=== PATIENT | female | born 1990 | race Caucasian/White ===

== ENCOUNTER 2018-06-03 17:09 | Emergency (ER) | payer OTHER, SELFPAY ==
--- NOTE | 2018-06-03 | DI.RAD.S_ITS ---
PROCEDURE: XR LUMBAR SPINE 2-3V INDICATIONS: BACK PAIN TECHNIQUE: 3 views of the lumbar spine were acquired. COMPARISON: None. FINDINGS: Bones: 5 [id number] vertebrae are present. There is normal bony alignment. No vertebral body compression fractures. No suspicious bony lesions. Soft tissues: Overlying bowel gas pattern is normal. No suspicious soft tissue calcifications. IMPRESSION: Normal for age. Source of current symptoms is not seen. Dictated by: Brendon Lucia M.D. on 06/03/2018 at 18:30 Approved by: Brendon Lucia M.D. on 06/03/2018 at 18:31
[2018-06-03 17:13] VITALS: BP 108/61; PULSE 61; RESP 18; TEMP 37; O2SAT 99; BMI 28.5
--- NOTE | 2018-06-03 18:08 | DI.RAD.S_ITS ---
PROCEDURE: XR THORACIC SPINE 3V INDICATIONS: back pain TECHNIQUE: 3 views of the thoracic spine were acquired. COMPARISON: None. FINDINGS: Bones: No fractures or dislocations. No suspicious bony lesions. 12 pairs of ribs are noted, and appear intact where visualized. Soft tissues: No paravertebral stripe thickening. IMPRESSION: No trauma found. Dictated by: Brendon Lucia M.D. on 06/03/2018 at 18:31 Approved by: Brendon Lucia M.D. on 06/03/2018 at 18:32
--- NOTE | 2018-06-03 18:38 | ED.BACK ---
HPI - Back Pain/Injury <JOAQUINA Jin - Last Filed: 06/03/18 19:06> General Chief Complaint: Back Pain/Injury Stated Complaint: back pain x 3 days Time Seen by Provider: 06/03/18 18:01 Source: patient Mode of arrival: ambulatory Limitations: no limitations History of Present Illness HPI Narrative: Patient presents with chief complaint of back pain. She states her last week while moving a couch. Took several days rest, ice, heat, ibuprofen and Tylenol. Denies any urinary symptoms. States she was feeling better and then immediately felt worse today when she bent over to pick something up at work. She denies any fevers, nausea, vomiting, diarrhea. She denies any numbness, tingling, bowel incontinence, bladder and continence or saddle anesthesia. She states that She has had back pain before several times but denies having had any imaging for her back. She denies any shortness of breath or chest pain. Related Data Previous Rx's Medication Instructions Recorded cyclobenzaprine 10 mg PO TID PRN #30 tab 06/03/18 naproxen 500 mg PO BID PRN #20 tab 06/03/18 Allergies Allergy/AdvReac Type Severity Reaction Status Date / Time clindamycin Allergy Swelling Verified 06/03/18 17:19 of Lip/Tongue/Throat Review of Systems <JOAQUINA Jin - Last Filed: 06/03/18 19:06> Review of Systems GENERAL: Denies chills, fatigue, malaise, fever, sweats. HEENT: Denies sinus pain, ear pain, sore throat, difficulty swallowing, dizziness. RESPIRATORY: Denies dyspnea, cough, wheezing, hemoptysis, sputum. CARDIOVASCULAR: Denies chest pain, palpitations, orthopnea, edema, GASTROINTESTINAL: Denies nausea, vomiting, abdominal pain, diarrhea, constipation, melena. : Denies dysuria, frequency, incontinence, hematuria, urinary retention. MUSCULOSKELETAL: see HPI SKIN: Denies rash, skin lesions, or other NEUROLOGIC: Denies weakness, headache, numbness, change in speech, confusion, seizures, incoordination. PSYCHIATRIC: No concerning psychosocial issues. 12 point review of systems is negative except for those stated above Exam <JOAQUINA Jin - Last Filed: 10/08/18 19:06> Narrative Exam Narrative: GENERAL: This is a well-nourished, well-developed patient, sitting straight up on bed. HEAD: Atraumatic. Normocephalic. No temporal or scalp tenderness. EYES: Pupils equal round and reactive. Extraocular motions intact. No scleral icterus. No injection or drainage. ENT: Nose without bleeding, purulent drainage or septal hematoma. Throat without erythema, tonsillar hypertrophy or exudate. Uvula midline. Airway patent. NECK: Trachea midline. No JVD or lymphadenopathy. Supple, nontender, no meningeal signs. CARDIOVASCULAR: Regular rate and rhythm without murmurs, gallops, or rubs. RESPIRATORY: Clear to auscultation. Breath sounds equal bilaterally. No wheezes, rales, or rhonchi. GASTROINTESTINAL: Abdomen soft, non-tender, nondistended. No hepato-splenomegaly, or palpable masses. No guarding. EXTREMITIES: No clubbing, cyanosis, or edema. No joint tenderness, effusion, or edema noted. BACK: C-spine and spina are nontender without deformity or crepitance. No palpable step-offs or deformities. Patient has pain to bilateral paraspinal muscle palpation in her T-spine region. No CVA tenderness bilaterally. NEURO: AOx3. Using bilateral extremities equally upper and lower. Strength equal bilateral extremities upper and lower. Radial reflexes intact bilaterally. Patellar reflexes intact bilaterally. Stable gait. No slurred speech. SKIN: No rash or erythema. No rash erythema or ecchymosis noted lower back. Initial Vital Signs Initial Vital Signs: Vital Signs Temperature 98.6 F 06/03/18 17:13 Pulse Rate 61 06/03/18 17:13 Respiratory Rate 18 06/03/18 17:13 Blood Pressure 108/61 06/03/18 17:13 Pulse Oximetry 99 06/03/18 17:13 <Winifred Malcolm DO - Last Filed: 06/04/18 08:27> Initial Vital Signs Initial Vital Signs: Vital Signs Temperature 98.6 F 06/03/18 17:13 Pulse Rate 61 06/03/18 17:13 Respiratory Rate 18 06/03/18 17:13 Blood Pressure 108/61 06/03/18 17:13 Pulse Oximetry 99 06/03/18 17:13 Course <TONY Jin - Last Filed: 06/03/18 19:06> Course Narrative: I discussed at length with the patient pros and cons of obtaining x-rays. Given that she has had several episodes of this pain, she requested x-rays. Orders Ordered: ED Orders 06/03/18 18:08 XR thoracic spine 3V Stat Vital Signs - 8 hr 06/03/18 17:13 Temperature 98.6 F Pulse Rate 61 Respiratory Rate 18 Blood Pressure 108/61 Pulse Oximetry 99 <Winifred Malcolm DO - Last Filed: 06/04/18 08:27> Orders Ordered: ED Orders 06/03/18 18:08 XR thoracic spine 3V Stat Vital Signs - 8 hr 06/03/18 17:13 Temperature 98.6 F Pulse Rate 61 Respiratory Rate 18 Blood Pressure 108/61 Pulse Oximetry 99 MDM - Back Pain/Injury <TONY Jin - Last Filed: 06/03/18 19:06> Lab Data Point of Care Testing Test Results Negative Imaging Data l spine xray : Radiologist's impression: [address] [address] XRay Report Signed Patient: Monica Skinner JMR#: [id number] : 1990Acct:[id number] Age/Sex: 28 / FDate of Service: 06/03/18 Loc: ED Accession Number: [id number] Procedure: XR lumbar spine 2-3V Ordering Provider: Jen Romero PROCEDURE: XR LUMBAR SPINE 2-3V INDICATIONS: BACK PAIN TECHNIQUE: 3 views of the lumbar spine were acquired. COMPARISON: None. FINDINGS: Bones: 5 nrq-kan-[id number] vertebrae are present. There is normal bony alignment. No vertebral body compression fractures. No suspicious bony lesions. Soft tissues: Overlying bowel gas pattern is normal. No suspicious soft tissue calcifications. IMPRESSION: Normal for age. Source of current symptoms is not seen. Dictated by: Brendon Lucia M.D. on 06/03/2018 at 18:30 Approved by: Brendon Lucia M.D. on 06/03/2018 at 18:31 t spine xray : Radiologist's impression: [address] [address] XRay Report Signed Patient: JosephEdison torrezyla JMR#: [id number] : 1990Acct:[id number] Age/Sex: 28 / FDate of Service: 06/03/18 Loc: ED Accession Number: [id number] Procedure: XR thoracic spine 3V Ordering Provider: Jen Romero PROCEDURE: XR THORACIC SPINE 3V INDICATIONS: back pain TECHNIQUE: 3 views of the thoracic spine were acquired. COMPARISON: None. FINDINGS: Bones: No fractures or dislocations. No suspicious bony lesions. 12 pairs of ribs are noted, and appear intact where visualized. Soft tissues: No paravertebral stripe thickening. IMPRESSION: No trauma found. Dictated by: Brendon Lucia M.D. on 06/03/2018 at 18:31 Approved by: Brendon Lucia M.D. on 06/03/2018 at 18:32 [facility] Narrative Medical decision making narrative: Patient presented chief complaint back pain. Given her presentation and pain on palpation, this is likely related to muscle spasm. We did obtain x-rays to help rule out any other etiology given the multiple episodes of this pain. Her x-rays came back within normal limits. Given that she took Aleve just prior to arrival in the emergency department, I did not give her any Toradol. Given that she drove herself here I was not comfortable treating her with Flexeril prior to driving. This I gave her prescription of Flexeril as well as a prescription for naproxen with an understanding of to not take it with any other NSAIDs. We discussed at length return precautions including numbness, weakness, incontinence of bowel or bladder saddle anesthesia. She stated understanding and has no questions or concerns upon discharge. <Winifred Malcolm, - Last Filed: 06/04/18 08:27> Lab Data Point of Care Testing Test Results Negative Discharge Plan Departure Patient Disposition: Home Clinical Impression: Back pain, Muscle spasm Discharge Date/Time: 06/03/18 19:22 Interventions: ED Discharge Assessment Last Done: 06/03/18 19:21 Instructions: DI for Back Spasm, DI for Thoracic Back Pain Activity Restrictions/Additional Instructions: Your x-rays today look okay. I have given you a prescription of naproxen for pain. You can take this twice a day but do not take it with any other NSAIDs such as ibuprofen or Aleve. I have given you a prescription for Flexeril that he can take up to 3 times a day. This is a muscle relaxer and can be sedating. He can also use ice or heat whichever feels best. Please follow-up with primary care provider if needed. Monitor for any weakness, numbness, incontinence of bowel or bladder, or saddle anesthesia. Please be evaluated if any of these occur. Prescriptions: New cyclobenzaprine 10 mg tablet 10 mg PO TID PRN (Reason: muscle spasm) Qty: 30 RF: 0 naproxen 500 mg tablet 500 mg PO BID PRN (Reason: pain) Qty: 20 RF: 0 Referrals: [facility] [Provider Group] Stand Alone Forms: Work/School Restrictions <Winifred Malcolm DO - Last Filed: 06/04/18 08:27> Cosign ED Attending Romeoature Attestation: I was immediately available in the department for consultation. Documentation has been reviewed. I agree with assessment and plan.
--- NOTE | 2018-06-03 18:45 | ED_ITS ---
HPI - Back Pain/Injury <JOAQUINA Jin - Last Filed: 06/03/18 19:06> General Chief Complaint: Back Pain/Injury Stated Complaint: back pain x 3 days Time Seen by Provider: 06/03/18 18:01 Source: patient Mode of arrival: ambulatory Limitations: no limitations History of Present Illness HPI Narrative: Patient presents with chief complaint of back pain. She states her last week while moving a couch. Took several days rest, ice, heat, ibuprofen and Tylenol. Denies any urinary symptoms. States she was feeling better and then immediately felt worse today when she bent over to pick something up at work. She denies any fevers, nausea, vomiting, diarrhea. She denies any numbness, tingling, bowel incontinence, bladder and continence or saddle anesthesia. She states that She has had back pain before several times but denies having had any imaging for her back. She denies any shortness of breath or chest pain. Related Data Previous Rx's Medication Instructions Recorded cyclobenzaprine 10 mg PO TID PRN #30 tab 06/03/18 naproxen 500 mg PO BID PRN #20 tab 06/03/18 Allergies Allergy/AdvReac Type Severity Reaction Status Date / Time clindamycin Allergy Swelling Verified 06/03/18 17:19 of Lip/Tongue/Throat Review of Systems <JOAQUINA Jin - Last Filed: 06/03/18 19:06> Review of Systems GENERAL: Denies chills, fatigue, malaise, fever, sweats. HEENT: Denies sinus pain, ear pain, sore throat, difficulty swallowing, dizziness. RESPIRATORY: Denies dyspnea, cough, wheezing, hemoptysis, sputum. CARDIOVASCULAR: Denies chest pain, palpitations, orthopnea, edema, GASTROINTESTINAL: Denies nausea, vomiting, abdominal pain, diarrhea, constipation, melena. : Denies dysuria, frequency, incontinence, hematuria, urinary retention. MUSCULOSKELETAL: see HPI SKIN: Denies rash, skin lesions, or other NEUROLOGIC: Denies weakness, headache, numbness, change in speech, confusion, seizures, incoordination. PSYCHIATRIC: No concerning psychosocial issues. 12 point review of systems is negative except for those stated above Exam <JOAQUINA Jin - Last Filed: 10/08/18 19:06> Narrative Exam Narrative: GENERAL: This is a well-nourished, well-developed patient, sitting straight up on bed. HEAD: Atraumatic. Normocephalic. No temporal or scalp tenderness. EYES: Pupils equal round and reactive. Extraocular motions intact. No scleral icterus. No injection or drainage. ENT: Nose without bleeding, purulent drainage or septal hematoma. Throat without erythema, tonsillar hypertrophy or exudate. Uvula midline. Airway patent. NECK: Trachea midline. No JVD or lymphadenopathy. Supple, nontender, no meningeal signs. CARDIOVASCULAR: Regular rate and rhythm without murmurs, gallops, or rubs. RESPIRATORY: Clear to auscultation. Breath sounds equal bilaterally. No wheezes , rales, or rhonchi. GASTROINTESTINAL: Abdomen soft, non-tender, nondistended. No hepato-splenomegaly , or palpable masses. No guarding. EXTREMITIES: No clubbing, cyanosis, or edema. No joint tenderness, effusion, or edema noted. BACK: C-spine and spina are nontender without deformity or crepitance. No palpable step-offs or deformities. Patient has pain to bilateral paraspinal muscle palpation in her T-spine region. No CVA tenderness bilaterally. NEURO: AOx3. Using bilateral extremities equally upper and lower. Strength equal bilateral extremities upper and lower. Radial reflexes intact bilaterally. Patellar reflexes intact bilaterally. Stable gait. No slurred speech. SKIN: No rash or erythema. No rash erythema or ecchymosis noted lower back. Initial Vital Signs Initial Vital Signs: Vital Signs Temperature 98.6 F 06/03/18 17:13 Pulse Rate 61 06/03/18 17:13 Respiratory Rate 18 06/03/18 17:13 Blood Pressure 108/61 06/03/18 17:13 Pulse Oximetry 99 06/03/18 17:13 <Winifred Malcolm DO - Last Filed: 06/04/18 08:27> Initial Vital Signs Initial Vital Signs: Vital Signs Temperature 98.6 F 06/03/18 17:13 Pulse Rate 61 06/03/18 17:13 Respiratory Rate 18 06/03/18 17:13 Blood Pressure 108/61 06/03/18 17:13 Pulse Oximetry 99 06/03/18 17:13 Course <TONY Jin - Last Filed: 06/03/18 19:06> Course Narrative: I discussed at length with the patient pros and cons of obtaining x-rays. Given that she has had several episodes of this pain, she requested x-rays. Orders Ordered: ED Orders 06/03/18 18:08 XR thoracic spine 3V Stat Vital Signs - 8 hr 06/03/18 17:13 Temperature 98.6 F Pulse Rate 61 Respiratory Rate 18 Blood Pressure 108/61 Pulse Oximetry 99 <Winifred Malcolm DO - Last Filed: 06/04/18 08:27> Orders Ordered: ED Orders 06/03/18 18:08 XR thoracic spine 3V Stat Vital Signs - 8 hr 06/03/18 17:13 Temperature 98.6 F Pulse Rate 61 Respiratory Rate 18 Blood Pressure 108/61 Pulse Oximetry 99 MDM - Back Pain/Injury <TONY Jin - Last Filed: 06/03/18 19:06> Lab Data Point of Care Testing Test Results Negative Imaging Data l spine xray : Radiologist's impression: [address] [address] XRay Report Signed Patient: Monica Skinner JMR#: [id number] : 1990Acct:[id number] Age/Sex: 28 / FDate of Service: 06/03/18 Loc: ED Accession Number: [id number] Procedure: XR lumbar spine 2-3V Ordering Provider: Jen Romero PROCEDURE: XR LUMBAR SPINE 2-3V INDICATIONS: BACK PAIN TECHNIQUE: 3 views of the lumbar spine were acquired. COMPARISON: None. FINDINGS: Bones: 5 [id number]-ubm-dhenobq vertebrae are present. There is normal bony alignment. No vertebral body compression fractures. No suspicious bony lesions. Soft tissues: Overlying bowel gas pattern is normal. No suspicious soft tissue calcifications. IMPRESSION: Normal for age. Source of current symptoms is not seen. Dictated by: Brendon Lucia M.D. on 06/03/2018 at 18:30 Approved by: Brendon Lucia M.D. on 06/03/2018 at 18:31 t spine xray : Radiologist's impression: [address] [address] XRay Report Signed Patient: JosephEdison torrezyla JMR#: [id number] : 1990Acct:[id number] Age/Sex: 28 / FDate of Service: 06/03/18 Loc: ED Accession Number: [id number] Procedure: XR thoracic spine 3V Ordering Provider: Jen Romero PROCEDURE: XR THORACIC SPINE 3V INDICATIONS: back pain TECHNIQUE: 3 views of the thoracic spine were acquired. COMPARISON: None. FINDINGS: Bones: No fractures or dislocations. No suspicious bony lesions. 12 pairs of ribs are noted, and appear intact where visualized. Soft tissues: No paravertebral stripe thickening. IMPRESSION: No trauma found. Dictated by: Brendon Lucia M.D. on 06/03/2018 at 18:31 Approved by: Brendon Lucia M.D. on 06/03/2018 at 18:32 [facility] Narrative Medical decision making narrative: Patient presented chief complaint back pain. Given her presentation and pain on palpation, this is likely related to muscle spasm. We did obtain x-rays to help rule out any other etiology given the multiple episodes of this pain. Her x-rays came back within normal limits. Given that she took Aleve just prior to arrival in the emergency department, I did not give her any Toradol. Given that she drove herself here I was not comfortable treating her with Flexeril prior to driving. This I gave her prescription of Flexeril as well as a prescription for naproxen with an understanding of to not take it with any other NSAIDs. We discussed at length return precautions including numbness, weakness, incontinence of bowel or bladder saddle anesthesia. She stated understanding and has no questions or concerns upon discharge. <Winifred Malcolm, - Last Filed: 06/04/18 08:27> Lab Data Point of Care Testing Test Results Negative Discharge Plan Departure Patient Disposition: Home Clinical Impression: Back pain, Muscle spasm Discharge Date/Time: 06/03/18 19:22 Interventions: ED Discharge Assessment Last Done: 06/03/18 19:21 Instructions: DI for Back Spasm, DI for Thoracic Back Pain Activity Restrictions/Additional Instructions: Your x-rays today look okay. I have given you a prescription of naproxen for pain. You can take this twice a day but do not take it with any other NSAIDs such as ibuprofen or Aleve. I have given you a prescription for Flexeril that he can take up to 3 times a day. This is a muscle relaxer and can be sedating. He can also use ice or heat whichever feels best. Please follow-up with primary care provider if needed. Monitor for any weakness, numbness, incontinence of bowel or bladder, or saddle anesthesia. Please be evaluated if any of these occur. Prescriptions: New cyclobenzaprine 10 mg tablet 10 mg PO TID PRN (Reason: muscle spasm) Qty: 30 RF: 0 naproxen 500 mg tablet 500 mg PO BID PRN (Reason: pain) Qty: 20 RF: 0 Referrals: [email or web address] [Provider Group] Stand Alone Forms: Work/School Restrictions <Winifred Malcolm DO - Last Filed: 06/04/18 08:27> Cosign ED Attending Romeoature Attestation: I was immediately available in the department for consultation. Documentation has been reviewed. I agree with assessment and plan.
--- NOTE | 2018-06-06 17:33 | PC.NURSE ---
follow up call, n/a
== END 2018-06-03 19:22 | disposition home or self-care (01) ==
PROVIDERS: Emergency Provider Nurse Practitioner Family
DX: M54.9 Dorsalgia, unspecified (principal); X50.0XXA Overexertion from strenuous movement or load, initial encounter
CPT/HCPCS: 72072; 72100; 81025; 99283; 99284

== ENCOUNTER 2019-02-18 06:30 | Day surgery (SDC) | payer OTHER, SELFPAY ==
[2019-02-05 15:10] VITALS: BMI 33.3
[2019-02-18] VITALS (13 sets, daily range): BP systolic 94–130; BP diastolic 55–69; PULSE 61–99; RESP 10–24; TEMP 36.2–36.7; O2SAT 94–100; BMI 33.3
[2019-02-18] MEDS: LACTATED RINGERS 1,000 ML 42 ML IV ×2 (07:14→08:46)
[2019-02-18] MEDS: MIDAZOLAM 2 MG/2 ML VIAL IV (07:36)
--- NOTE | 2019-02-18 07:41 | PM.PREOP ---
Pre-operative Note Interval Note History & Physical reviewed/Exam performed by Physician: Yes Changes to H&P: No
--- NOTE | 2019-02-18 07:44 | P.OP_ITS ---
Operative Date/Time/Diagnoses Date of procedure: 02/18/19 Time of procedure: 07:41 Pre-op diagnosis: Right hallux abductovalgus with bunion and pain Post-op diagnosis: same Procedure & Clinicians Procedure: Right bunionectomy with first metatarsocuneiform fusion Same procedure as scheduled: Yes Indications: Pain of the back, hip, and flexible pronating foot with bunion deformity. Conservative measures failed to alleviate pain and she wished to have surgical intervention at this time. Surgeon: Sarai Belle Click Yes if Unassisted: Yes Anesthesia Type: General Operative Notes Closure Type: primary Specimen(s): none sent Prosthetic devices, grafts, tissues, transplants, or devices: [place] Lap[place]us plate, 4.0 cannulated screw, 3.5 locking screws x3, 4.2 non-locking screw Vicryl 3-0, 4-0, Nylon 3-0 Estimated Blood Loss (mL): 20 Blood products transfused: none Tourniquet time (min): 89 Procedure in detail: The patient was brought to the operating room and placed on the operating table in the supine position. The tourniquet was placed about the right thigh. Well padded and appropriately aligned. After induction of general anesthesia the foot and ankle were prepped and draped in the usual aseptic manner. The tourniquet was inflated. Incision was made over the right 1st metatarsal cuneiform joint extending to the 1st metatarsophalangeal joint. The incision was deepened through subcutaneous tissues being careful to identify and retract all vital neurovascular structures. All bleeders were cauterized and ligated as necessary. A capsulotomy was performed to the 1st MTPJ exposing the enlarged medial eminence. The saw was used to resect the medial eminence and a little more prominent area of cartilage on the dorsal lateral 1st metatarsal head. This was smoothed. Attention was then directed to the 1st metatarsocuneiform joint which was entered. The joint was taken down and an osteotome was used to remove the cartilage off of either surface and then placing the foot in its corrected position, a saw was used to freshen the cuts on either side while resecting a little bone in an angled fashion from the distal leading edge of the medial cuneiform. This allowed for closure of the intermetatarsal angle. A drill was used to fenestrate either side of the former joint and fish scaling was also used. The area was irrigated with copious amounts normal sterile saline. With the aid of C-arm the guidewire was placed for temporary fixation through the 1st metatarsocuneiform joint. I loaded the foot and found appropriate alignment upon loading. Next the plate was trialed and using the guide the lag screw was placed from distal to proximal. The fusion site showed good compression and closure. The plate was then attached with the corresponding screws in the normal AO technique. This was reviewed on C-arm and noted to be strong and in appropriate alignment. Once this was loaded it would appear that there did not need to be a distal metatarsal osteotomy or phalangeal osteotomy and instead capsule balancing techniques with the soft tissue were appropriate. Once again after irrigation the medial 1st MTP capsule was resected and closed down and alignment with Vicryl. The tourniquet was deflated and a prompt hyperemic response was seen in the foot. Deep and subcutaneous closure was closed performed with Vicryl and nylon to the skin. The foot was dressed with a lightly compressive sterile dressing and splint in alignment. She was then placed in a postoperative shoe and transferred to PACU with vital signs stable. Complications: none Condition: stable Disposition: PACU Plan for aftercare: Following a period of postoperative monitoring the patient be discharged home on written and oral postoperative instructions including keeping the dressing dry and intact, no weight or walking to the foot, icing and elevating the foot when seated at home. DVT prevention techniques have been reviewed. Suture removal usually in the first couple weeks, x-rays at week 3-4. Possible start of WB around weekd 4, but will evaluate first prior to this allowance.
[2019-02-18] MEDS: CEFAZOLIN 2 GM/100 ML FROZ.PIGGY IV (07:46)
--- NOTE | 2019-02-18 07:47 | SUR.PREOP ---
Preoperative admit: Post IV insertion, patient felt light headed and dizzy. Head of bed flatttened. VSS. O2/NC 2 liters with sat 99%. Patient awake and responding appropriately to verbal commands. Patient stated Sorry, I am nervous. Reassured patient. Dr. Hayes at bedside at time of Vasovagal symptoms. Medicated with Versed per verbal order.
--- NOTE | 2019-02-18 08:21 | SUR.OPER ---
Supine on padded OR bed, head on pillow, arms secured on padded arm boards at <90 degrees abduction, legs uncrossed, safety belt at thigh, tape over blanket over lower left leg, right leg draped free with gell bump under right buttockl.
[2019-02-18] MEDS: BUPIVACAINE 0.5% (PF) VIAL 30 ML INJ (08:48)
[2019-02-18] MEDS: fentaNYL 100 MCG/2 ML INJ 50 MCG IV (10:24)
[2019-02-18] MEDS: HYDROCODONE/ACET 5/325 TABLET 1 TAB PO (10:48)
--- NOTE | 2019-02-18 11:02 | SUR.PHASEI ---
post op PACU note: VSS, o2 sat 93-97% RA, dressing CDI, rt foot; medicated w/ oral pain med for pain level 2/10; tolerated PO no Nausea. Transfered to OPD verbal hand off report given to Leni David
== END 2019-02-18 12:00 ==
LOC: OR 06:32
PROVIDERS: Visit Provider Podiatrist
PROC: 0QBN0ZZ Excision of Right Metatarsal, Open Approach (ICD-10-PCS; CPT 28292; principal; 2019-02-18 07:45)
DX: M20.11 Hallux valgus (acquired), right foot (principal); M21.41 Flat foot [pes planus] (acquired), right foot; R26.2 Difficulty in walking, not elsewhere classified; M79.671 Pain in right foot; F41.9 Anxiety disorder, unspecified
CPT/HCPCS: 28297; J0690; J1100; J2250; J2405; J2704; J3010

== ENCOUNTER 2019-07-11 06:12 | Day surgery (SDC) | payer OTHER, SELFPAY ==
[2019-07-10 13:35] VITALS: BMI 33.5
[2019-07-11] VITALS (11 sets, daily range): BP systolic 103–136; BP diastolic 58–85; PULSE 62–74; RESP 10–23; TEMP 36.2–36.7; O2SAT 93–99; BMI 34.0
[2019-07-11] MEDS: LACTATED RINGERS 1,000 ML 42 ML IV ×2 (07:04→10:09)
--- NOTE | 2019-07-11 07:30 | PM.PREOP ---
Pre-operative Note Interval Note History & Physical reviewed/Exam performed by Physician: Yes Changes to H&P: No
--- NOTE | 2019-07-11 07:31 | PM.OP.1 ---
Operative Date/Time/Diagnoses Date of procedure: 07/11/19 Time of procedure: 07:31 Pre-op diagnosis: Left hallux abductovalgus with bunion deformity Post-op diagnosis: same Procedure & Clinicians Procedure: Left bunionectomy with first metatarsocuneiform fusion Same procedure as scheduled: Yes Indications: Painful of the back, hip, and flexible pronating foot with bunion deformity. Conservative measures failed to alleviate her pain and she wished to have surgical intervention at this time. She is happy with the results of the procedure on the right foot. Surgeon: Sarai Belle Click Yes if Unassisted: Yes Anesthesia Type: General Operative Notes Closure Type: primary Specimen(s): none sent Prosthetic devices, grafts, tissues, transplants, or devices: [place] plate, 4.0 cannulated screw, 3.5 locking screws x3, non-locking x1 Estimated Blood Loss (mL): 30 Blood products transfused: none Tourniquet time (min): 97 Procedure in detail: Procedure in detail: The patient was brought to the operating room and placed on the operating table in the supine position. The tourniquet was placed about the left thigh. Well padded and appropriately aligned. After induction of general anesthesia the foot and ankle were prepped and draped in the usual aseptic manner. The tourniquet was inflated. The tourniquet was not able to inflate, and after a second attempt, the thigh tourniquet was undone and a sterile ankle tourniquet was placed instead. After exsanguination, the tourniquet was inflated to 250 mm Hg. Incision was made over the left 1st metatarsal cuneiform joint extending to the 1st metatarsophalangeal joint. The incision was deepened through subcutaneous tissues being careful to identify and retract all vital neurovascular structures. All bleeders were cauterized and ligated as necessary. A capsulotomy was performed to the 1st MTPJ exposing the enlarged medial eminence. The saw was used to resect the medial eminence on the 1st metatarsal head. This was smoothed. Attention was then directed to the 1st metatarsocuneiform joint which was entered. The joint was taken down and an osteotome and saw were used to remove the cartilage off of either surface. Placing the foot in its corrected position, a saw was used to freshen the cuts on either side while resecting a little bone in an angled fashion from the distal leading edge of the medial cuneiform. This allowed for closure of the intermetatarsal angle. A drill was used to fenestrate either side of the former joint and fish scaling was also used. The area was irrigated with copious amounts normal sterile saline. With the aid of C-arm the guidewire was placed for temporary fixation through the 1st metatarsocuneiform joint. I loaded the foot and found appropriate alignment upon loading. Next the plate was trialed and using the guide the lag screw was placed from distal to proximal. The fusion site showed good compression and closure. The plate was then attached with the corresponding screws in the normal AO technique. This was reviewed on C-arm and noted to be strong and in appropriate alignment. Once this was loaded it would appear that there did not need to be a distal metatarsal osteotomy or phalangeal osteotomy and instead capsule balancing techniques with the soft tissue were appropriate. Once again after irrigation the medial 1st MTP capsule was resected and closed down and alignment with Vicryl. The tourniquet was deflated and a prompt hyperemic response was seen in the foot. Deep and subcutaneous closure was closed performed with Vicryl and nylon to the skin. The foot was dressed with a lightly compressive sterile dressing and splint in alignment. She was then placed in a postoperative shoe and transferred to PACU with vital signs stable. Complications: none Post-operative Condition: stable Disposition: PACU Plan for aftercare: Following a period of postoperative monitoring the patient will be discharged to home on written and oral postoperative instructions including keeping the dressing dry and intact, no weight or walking to the foot, ok for icing and elevating the foot when seated at home. DVT prevention techniques have been reviewed. Suture removal usually in the first couple weeks, x-rays at week 3-4. Possible start of WB around week 4, but will evaluate first prior to this allowance.
[2019-07-11] MEDS: MIDAZOLAM 2 MG/2 ML VIAL IV (07:41)
--- NOTE | 2019-07-11 07:42 | SUR.PREOP ---
pt taken directly in the OR after IV Midazolam given per anesthesia order. pt alert and talking to RN at bedside.
[2019-07-11] MEDS: CEFAZOLIN 2 GM/100 ML FROZ.PIGGY IV (07:50)
--- NOTE | 2019-07-11 08:29 | SUR.OPER ---
Supine on padded OR bed, head on pillow, arms secured on padded arm boards at <90 degrees abduction, legs uncrossed, safety belt at thigh, tape over blanket over non-operative lower extremity, Bump to left hip.
[2019-07-11] MEDS: BUPIVACAINE 0.5% (PF) VIAL 30 ML INJ (08:46)
[2019-07-11] MEDS: MEPERIDINE 50 MG/ML INJ 25 MG IV ×2 (10:51→11:00)
[2019-07-11] MEDS: fentaNYL 100 MCG/2 ML INJ IV ×2 (10:58→11:05)
[2019-07-11] MEDS: CODEINE/ACETAMINOPHEN 30/300 TABLET 1 TAB PO (11:12)
[2019-07-11] MEDS: OXYCODONE IR 5 MG TABLET PO (11:52)
== END 2019-07-11 12:10 | disposition home or self-care (01) ==
PROVIDERS: Visit Provider Podiatrist
PROC: (CPT 28297; principal; 2019-07-11 07:45)
DX: M20.12 Hallux valgus (acquired), left foot (principal); M79.672 Pain in left foot; M21.42 Flat foot [pes planus] (acquired), left foot; R26.2 Difficulty in walking, not elsewhere classified; F41.9 Anxiety disorder, unspecified
CPT/HCPCS: 28297; J0690; J1100; J2175; J2250; J2405; J2704; J3010

== ENCOUNTER 2020-08-20 15:21 | Emergency (ER) | payer OTHER, SELFPAY ==
[2020-08-20 15:38] VITALS: BP 117/63; PULSE 54; RESP 16; TEMP 36.5; O2SAT 98; BMI 36.0
--- NOTE | 2020-08-20 15:43 | DI.RAD.S_ITS ---
PROCEDURE: XR FOOT RT MIN 3V INDICATIONS: Screw to right foot TECHNIQUE: 3 views of the foot were acquired. [facility] [place], [facility], [facility]+ VIEWS RIGHT, 04/30/2019, 9:42. [facility], [place], XR FOOT 3+ VIEWS RIGHT, 03/19/2019, 10:17. [facility] [place], CR, XR FOOT 3+ VIEWS RIGHT, 01/22/2019, 15:22. FINDINGS: Bones: No fractures or dislocations. No suspicious bony lesions. First tarsometatarsal joint fixation hardware is seen, as before. No findings of hardware failure or hardware loosening are seen. A plantar calcaneal spur is seen. Soft tissues: No significant soft tissue abnormality is seen. No radiopaque foreign bodies are seen. IMPRESSION: No radiopaque foreign body or significant soft tissue abnormality is seen. If there is strong suspicion for developing osteomyelitis, please consider a dedicated MRI without and with contrast for further evaluation (assuming that there is no contraindication to MRI). No acute bony abnormality is seen. Stable 1st tarsometatarsal joint fixation hardware. Dictated by: Sen Hadley M.D. on 08/20/2020 at 15:16 Approved by: Sen Hadley M.D. on 08/20/2020 at 15:18
[2020-08-20 17:11] VITALS: O2SAT 100
[2020-08-20 17:12] VITALS: BP 128/59; PULSE 51; O2SAT 99
[2020-08-20 17:13] VITALS: TEMP 36.7
--- NOTE | 2020-08-20 17:28 | PC.NURSE ---
patient stepped on a screw around 1400 today. She felt a pop and pulled her foot off the screw and was able to see some fatty tissue come out. The appearance is a small puncture wound that comes with 3/10 pain. There does not appear to be any debris around the wound. There is some bruising on the top of her foot that may or may not correspond to the puncture wound on the top surface of her foot.
[2020-08-20 17:30] VITALS: BP 117/68; PULSE 54; O2SAT 99
[2020-08-20] MEDS: HYDROCODONE/ACET 5/325 PREPACK 1 BOTTLE MISC (17:45)
[2020-08-20] MEDS: CIPROFLOXACIN 500 MG TABLET PO (17:45)
--- NOTE | 2020-08-20 20:11 | ED_ITS ---
HPI - Extremity Injury (Lower) General Chief Complaint: Extremity Injury, Lower Stated Complaint: Stepped on screw/ Rt foot Time Seen by Provider: 08/20/20 15:23 Source: patient Mode of arrival: Ambulatory Limitations: no limitations History of Present Illness HPI Narrative: 30-year-old female nonsmoker with noncontributory medical history presents with her significant other and a chief complaint of accidentally s tepping on a screw with her right foot prior to arrival. She was wearing socks and a boot when her foot was punctured. She denies fever chills or other symptoms complaint: foot injury Onset (ago): minute(s) Injury: Right: foot Type of Injury: puncture wound Place: home Severity: moderate Relieving factors: immobilization Exacerbating factors: weight bearing Context: walking and stepped on nail Other symptoms: none Related Data Home Medications Medication Instructions Recorded Confirmed fluoxetine 20 mg capsule 50 mg PO DAILY 08/28/18 07/11/19 naproxen sodium 220 mg tablet 220 mg PO DAILY PRN tab 08/28/18 07/11/19 Previous Rx's Medication Instructions Recorded ciprofloxacin HCl 500 mg PO BID #20 tab 08/20/20 Allergies Allergy/AdvReac Type Severity Reaction Status Date / Time clindamycin Allergy Swelling Verified 08/20/20 15:38 of Lip/Tongue/Throat Review of Systems Constitutional Constitutional: Denies chills, Denies fatigue, Denies fever(s), Denies frequent falls, Denies lethargy and Denies weakness Eyes Eyes: Denies change in vision, Denies eye discharge, Denies irritation and Denies loss of vision ENT Ears, Nose, Mouth, and Throat: Denies change in voice, Denies dizziness, Denies neck pain, Denies sore throat and Denies throat swelling Cardiovascular Cardiovascular: Denies chest pain, Denies irregular heart rhythm, Denies lightheadedness, Denies palpitations, Denies dyspnea, Denies dyspnea on exertion and Denies orthopnea Respiratory Respiratory: Denies cough, Denies dyspnea, Denies dyspnea on exertion and Denies wheezing Gastrointestinal Gastrointestinal: Denies abdominal pain, Denies change in bowel habits, Denies diarrhea, Denies nausea and Denies vomiting Musculoskeletal Musculoskeletal: Denies neck pain and Denies numbness Integumentary/Breasts Skin/Breast: Denies pruritus, Denies erythema, Denies rash and Reports wounds Neurologic Neurologic: Denies behavioral changes, Denies confusion, Denies dizziness, Denies frequent falls, Denies loss of vision, Denies numbness and Denies weakness Psychiatric Psychiatric: Denies anxiety, Denies behavioral changes, Denies confusion, Denies depression, Denies homicidal ideation and Denies suicidal ideation Endocrine Endocrine: Denies fatigue, Denies flushing and Denies palpitations Hematologic/Lymphatic Hematologic/Lymphatic: Denies easy bruising Allergic/Immunologic Allergic/Immunologic: Denies urticaria, Denies throat swelling and Denies wheezing Patient History Medical History Depression Surgical History History of bunionectomy of right great toe (02/18/19) Social History household members: friend(s) Smoking Status: Never smoker alcohol intake: current Smoking Status: Never smoker alcohol intake frequency: holidays/special occasions only Substance Use Type: marijuana Exam Narrative Exam Narrative: GEN: AOx3 and in mild distress EYES: Pupils are equal, round, and reactive to light and accommodation. Extraoccular muscles are intact bilaterally. There is no subconjunctival hemorrh age or exudate. CHEST: Lungs are clear to auscultation bilaterally and free of wheezes, rales, or rhonchi. Heart rate is regular rhythm, there are no murmurs, clicks, rubs, or gallops. There is no chest wall tenderness. ABD: Abdomen is soft and nontender. There is no guarding or rebound. Bowel sounds are normal in all 4 quadrants. There is no mass or organomegaly. EXT: Small puncture in plantar surface of right foot, no bleeding or suggestion of foreign body. Wash with warm soapy water, soaked in Betadine Full painless ROM of all extremities with no loss of sensation or strength. SKIN: Warm, pink, and dry. No erythema or rash Initial Vital Signs Initial Vital Signs: Vital Signs Temperature 97.7 F 08/20/20 15:38 Pulse Rate 54 L 08/20/20 15:38 Respiratory Rate 16 08/20/20 15:38 Blood Pressure 117/63 08/20/20 15:38 Pulse Oximetry 98 08/20/20 15:38 Course Orders Ordered: ED Orders 08/20/20 15:43 XR foot RT min 3V Stat Discontinued Medications Hydrocodone Bitart/Acetaminophen (Hydrocodone/Acet 5/325 Prepack) 1 bottle MISC SEEINSTR ONE Stop: 08/20/20 17:36 Last Admin: 08/20/20 17:45 Dose: 1 bottle Documented by: BEBO Ciprofloxacin (Ciprofloxacin 500 Mg Tablet) 500 mg PO NOW ONE Stop: 08/20/20 17:36 Last Admin: 08/20/20 17:45 Dose: 500 mg Documented by: BEBO Vital Signs Vital signs: Vital Signs - 8 hr 08/20/20 15:38 08/20/20 17:11 08/20/20 17:12 Temperature 97.7 F Pulse Rate 54 L 51 L Respiratory Rate 16 Blood Pressure 117/63 128/59 L Pulse Oximetry 98 100 99 08/20/20 17:13 08/20/20 17:30 Temperature 98.0 F Pulse Rate 54 L Respiratory Rate Blood Pressure 117/68 Pulse Oximetry 99 MDM - Extremity Injury (Lower) Imaging Data Extremity x-ray #1: Radiologist's Impression: Monica Skinner 30 F [address] [id number] ReportSigned Patient: DarianapilarMonica JMR#: [id number]: 1990Acct:[id number]/Sex: 30 / FDate of Service: 08/20/20Loc: EDAccession Number: [id number] Procedure: XR foot RT min 3V Ordering Provider: Huber Herrera D.O. PROCEDURE: XR FOOT RT MIN 3V INDICATIONS: Screw to right foot TECHNIQUE: 3 views of the foot were acquired. COMPARISON: [facility] [place], [place], XR FOOT 3+ VIEWS RIGHT, 04/30/2019, 9:42. [facility] [place], CR, XR FOOT 3+ VIEWS RIGHT, 03/19/2019, 10:17. [facility] [place], CR, XR FOOT 3+ VIEWS RIGHT, 01/22/2019, 15:22. FINDINGS: Bones: No fractures or dislocations. No suspicious bony lesions. First tarsometatarsal joint fixation hardware is seen, as before. No findings of hardware failure or hardware loosening are seen. A plantar calcaneal spur is seen. Soft tissues: No significant soft tissue abnormality is seen. No radiopaque foreign bodies are seen. IMPRESSION: No radiopaque foreign body or significant soft tissue abnormality is seen. If there is strong suspicion for developing osteomyelitis, please consider a dedicated MRI without and with contrast for further evaluation (assuming that there is no contraindication to MRI). No acute bony abnormality is seen. Stable 1st tarsometatarsal joint fixation hardware. Dictated by: Sen Hadley M.D. on 08/20/2020 at 15:16 Approved by: Sen Hadley M.D. on 08/20/2020 at 15:18 Discharge Plan Departure Patient Disposition: Home Clinical Impression: Puncture wound of foot Qualifiers: Encounter type: initial encounter Laterality: right Qualified Code(s): S91.331A - Puncture wound without foreign body, right foot, initial encounter Activity Restrictions/Additional Instructions: *You have been diagnosed with [puncture wound of right foot, through footwear.] *What to do: *Take medications as directed: Prescription electronically transmitted to [facility] at your request *Follow up with your primary care provider in 2-3 days, call for an appointment. Let them know you were seen in the Emergency Department and that we ask that you be seen in follow up *Return to ER if you should have any new, worsening or concerning symptoms, such as [increasing pain, redness, swelling, drainage or other bothersome symptoms] Prescriptions: New ciprofloxacin HCl 500 mg tablet 500 mg PO BID Qty: 20 RF: 0 No Action fluoxetine [Prozac] 20 mg capsule 50 mg PO DAILY RF: 0 naproxen sodium [Aleve] 220 mg tablet 220 mg PO DAILY PRN (Reason: Pain) RF: 0
== END 2020-08-20 17:58 | disposition home or self-care (01) ==
PROVIDERS: Emergency Provider Emergency Medicine
DX: S91.331A Puncture wound without foreign body, right foot, initial encounter (principal); W45.0XXA Nail entering through skin, initial encounter
CPT/HCPCS: 73630; 99281; 99283